=== PATIENT | male | born 1945 | race Hispanic/Latino ===

== ENCOUNTER 2018-06-23 07:41 | Day surgery (SDC) | payer MEDICARE ==
[2018-06-23] MEDS ORDERED: Lactated Ringer's 500 ML IV ONE (07:58)
[2018-06-23] MEDS ORDERED: Propofol 10 mg/ml Inj (20 ML) ONE (08:38)
[2018-06-23 09:43] VITALS: BP 122/59; PULSE 69; RESP 15; TEMP 97.5; O2SAT 100
== END 2018-06-23 10:13 | disposition home or self-care (01) ==
LOC: H.ENDO 07:41
PROVIDERS: ATTEND Internal Medicine Gastroenterology
DX: Z12.11 Encounter for screening for malignant neoplasm of colon (principal); K57.30 Diverticulosis of large intestine without perforation or abscess without bleeding; D12.2 Benign neoplasm of ascending colon; K64.0 First degree hemorrhoids
CPT/HCPCS: 45380; 88305; J2001; J2704; J7120